=== PATIENT | male | born 1945 ===

== ENCOUNTER 2018-03-26 11:09 | Emergency (ER) | payer MEDICARE ==
[2018-03-26 11:17] VITALS: BP 173/101
[2018-03-26] MEDS ORDERED: Lidocain 1% EPI 1:100,000 * 30 ML MDV INJ ONE (12:28)
--- NOTE | 2018-03-26 12:28 | UC ---
Laceration HPI - HPI Summary HPI Summary: pt tripped and fell last pm around midnight. Cut forehead on door or floor, is not sure but is sure there was no LOC. was there as well, both were drinking (had a constitution party). EMS was called since neither could drive and pt was checked out-refused [place] to ER - History Of Current Complaint Chief Complaint: UCHeadInjury Stated Complaint: HEAD LAC Time Seen by Provider: 03/26/18 12:07 Hx Obtained From: Patient, Family/Informatics Consultant Laceration Location: Head Mechanism Of Injury: Blunt Trauma Onset/Duration: Sudden Onset Severity: Mild Pain Intensity: 0 - Allergies/Home Medications Allergies/Adverse Reactions: Allergies Allergy/AdvReac Type Severity Reaction Status Date / Time No Known Allergies Allergy Verified 03/26/18 11:18 Home Medications: Home Medications Finasteride TAB* [Proscar TAB*] 5 mg PO DAILY 03/26/18 [History Confirmed ] Irbesartan/Hydrochlorothiazide [Irbesartan-Hctz 150-12.5 mg Tb] 150 mg PO DAILY 03/26/18 [History Confirmed 03/26/18] PMH/Surg Hx/FS Hx/Imm Hx Previously Healthy: Yes Cardiovascular History: Hypertension - Surgical History Surgical History: None - Family History Known Family History: Positive: None Negative: Diabetes - Social History Occupation: Retired Lives: With Family Alcohol Use: Occasionally Substance Use Type: None Smoking Status (MU): Former Smoker - Immunization History Hx Tetanus, Diphtheria Vaccination: Yes - 2016 Review of Systems All Other Systems Reviewed And Are Negative: Yes Constitutional: Positive: Negative Skin: Positive: Other - cut head Eyes: Positive: Negative Respiratory: Positive: Negative Cardiovascular: Positive: Negative Musculoskeletal: Positive: Negative Neurological: Positive: Negative. Negative: Headache, Weakness Psychological: Positive: Negative Is Patient Immunocompromised?: No Physical Exam Triage Information Reviewed: Yes Appearance: Well-Appearing, No Pain Distress, Well-Nourished Vital Signs: Initial Vital Signs Temp 98.5 F 03/26/18 11:12 Pulse 113 03/26/18 11:12 Resp 16 03/26/18 11:12 BP 173/101 03/26/18 11:12 Pulse Ox 98 03/26/18 11:12 Vital Signs Reviewed: Yes Eyes: Positive: Conjunctiva Clear Neck exam: Normal Neck: Positive: Supple, Nontender Respiratory Exam: Normal Respiratory: Positive: Lungs clear Cardiovascular Exam: Normal Cardiovascular: Positive: RRR Musculoskeletal Exam: Normal Musculoskeletal: Positive: Strength Intact, ROM Intact Neurological Exam: Normal Neurological: Positive: Alert Psychological Exam: Normal Skin: Positive: Other - large flap laceration R forehead, no bleeding Laceration Repair - Laceration Repair 1 Description: Irregular - 4cm cresent shaped flap laceration R forehead Laceration Size After Repair: Length (cm) - 4cm, Width (mm) - 7mm, Depth (mm) - 3mm Modified For Repair: No Type Injection: Local Anesthesia Used: 1.0% Lido Additive Used (in ml): Epi Cleansing Completed Via Routine Prep: Yes Irrigation With Pressure Irrigation Device: Yes Closure Material: Sutures Closure Method: Single Layer Suture Of: Skin Suture Type: Prolene - 6.0, eleven sutures Laceration Course/Dx - Differential Dx - Laceration/Wound Differental Diagnoses: Abrasion, Avulsion, Laceration - Diagnosis Provider Diagnosis: Laceration of forehead Discharge - Sign-Out/Discharge Documenting (check all that apply): Patient Departure All imaging exams completed and their final reports reviewed: No Studies - Discharge Plan Condition: Good Disposition: HOME Patient Education Materials: Laceration (ED) Referrals: Karishma Prajapati MD [Primary Care Provider] - 2 Days (for wound recheck) Additional Instructions: keep wound clean and dry return in 5-7 days for suture removal - Billing Disposition and Condition Condition: GOOD Disposition: Home - Attestation Statements Provider Attestation: I was available for consult. This patient was seen by the [facility]. The patient was not presented to , seen by or examined by ne Sharad Allen MD
[2018-03-26] MEDS ORDERED: Lidocain 1% EPI 1:100,000 * 30 ML MDV ONE (12:39)
== END 2018-03-26 13:55 | disposition home or self-care (01) ==
LOC: UCEAST 11:09
DX: S01.81XA Laceration without foreign body of other part of head, initial encounter (principal); I10 Essential (primary) hypertension; Z79.899 Other long term (current) drug therapy; W01.198A Fall on same level from slipping, tripping and stumbling with subsequent striking against other object, initial encounter; Y92.9 Unspecified place or not applicable
CPT/HCPCS: 12002; 99211; G0463